=== PATIENT | female | born 1985 | race Caucasian/White ===

== ENCOUNTER 2018-09-24 04:41 | Emergency (ER) | payer OTHER ==
[2018-09-24] MEDS ORDERED: LORazepam INJ* 2 MG/ML 1 ML VIAL ONE (04:44)
[2018-09-24] MEDS ORDERED: NS 0.9% 1000 ML* 1,000 ML IV ONE ×2 (04:45→05:55)
[2018-09-24] MEDS ORDERED: LORazepam INJ* 2 MG/ML 1 ML VIAL IV PUSH ONE ×3 (04:47→06:49)
--- NOTE | 2018-09-24 04:51 | ED ---
Substance Abuse/Use - HPI Summary HPI Summary: Pt is a 36 y/o female brought in by EMS who presents to the ED c/o possible overdose. EMS found her face down on her bed, unresponsive. As per friend, she has a hx of cocaine use. Pt admits to using cocaine. EMS states that pt is very minimally responsive, and was clenched and shaking on the ride over. HR 140s and BP 100/62, as per EMS. She denies pain, fall, or seizure. Pt is not . Pt is a level 5 caveat due to her intoxication and AMS. - History Of Current Complaint Chief Complaint: EDAltMentalStatus Stated Complaint: UNRESPONSIVE Time Seen by Provider: 09/24/18 04:44 Hx Obtained From: Patient, Family/Lead Level Designer - Friend, EMS Hx From Patient Unobtainable Due To: Altered Mental Status - Intoxication Ingestion History: Type/Name Of Drug - Cocaine Character: Anxious, Other - Minimally responsive Aggravating Factor(s): Nothing Alleviating Factor(s): Nothing Associated Signs And Symptoms: Negative - Allergies/Home Medications Allergies/Adverse Reactions: Allergies Allergy/AdvReac Type Severity Reaction Status Date / Time No Known Allergies Allergy Verified 09/24/18 06:02 PMH/Surg Hx/FS Hx/Imm Hx Endocrine/Hematology History: Denies: Hx Diabetes Cardiovascular History: Denies: Hx Hypertension - Family History Known Family History: Positive: Unknown - Level 5 caveat - Social History Alcohol Use: None Hx Substance Use: Yes Substance Use Type: Reports: Cocaine Smoking Status (MU): Unknown if Ever Smoked Review of Systems Neurological: Other - AMS All Other Systems Reviewed And Are Negative: No Physical Exam - Summary Physical Exam Summary: Appearance: Well appearing, mild pain distress Skin: warm, reflects adequate perfusion, diaphoretic face, feet dirty Head/face: normal Eyes: EOMI, ESTER, pupils dilated ENT: mucous membranes moist Neck: supple, non-tender Respiratory: CTA, breath sounds present, tachypneic Cardiovascular: tachycardic, pulses symmetrical Abdomen: non-tender, soft Bowel Sounds: present Musculoskeletal: normal, strength/ROM intact Neuro: normal, sensory motor intact, A&Ox3 Triage Information Reviewed: Yes Vital Signs Reviewed: Yes Diagnostics - Laboratory Result Diagrams: 09/24/18 04:45 09/24/18 04:45 Lab Statement: Any lab studies that have been ordered have been reviewed, and results considered in the medical decision making process. - EKG 4:55 Cardiac Rate: Tachycardia - 103 bpm EKG Rhythm: Sinus Rhythm ST Segment: Normal Summary of EKG Findings: Nl axis, baseline artifact EKG 2 Cardiac Rate: NL EKG Rhythm: Sinus Rhythm - rate 81 ST Segment: Normal Ectopy: None EKG Comparison: No Significant Change Re-Evaluation - Re-Evaluation First Eval Re-Evaluation Time: 04:56 Change: Worse Comment: Pt feels dizzy. Second Eval Re-Evaluation Time: 05:55 Change: Improved Comment: Pt is now speaking. She reports snorting cocaine and nothing else. Pt' s friend is present. Course/Dx - Course Course Of Treatment: Nurse's notes reviewed. Patient presents with altered mental status and diaphoresis after stating she used more cocaine than usual. She denies alcohol use or other drugs. She is not hypertensive nor tachycardic but is feeling extremely paranoid and anxious. She has had episodes of dizziness. She also had noted SVT up to 230 rate that self terminated after approximately 30 seconds. She received 2 bags of IV fluids and 3 mg of Ativan. She still feels paranoid and anxious. Patient had a second episode where monitor was showing SVT at a rapid rate in the 200s. The patient was asymptomatic throughout this and her pulse rate taken by me was still in the 80s and unchanged from her baseline. She still remains a little diaphoretic but had no complaint of palpitation, lightheadedness etc. I was pursuing admitting her for telemetry, etc. but this appears artifactual. Repeat EKG during this time confirms normal sinus rhythm. - Diagnoses Differential Diagnosis/HQI/PQRI: Positive: Drug Abuse, Other - SVT, hallucinogenic drug, amphetamines or other synthetic medication Provider Diagnoses: Cocaine delirium, Paranoia, Lactic acidosis - Physician Notifications Discussed Care Of Patient With: Kathy Smith - discussed case. Agrees with tx plan. - Critical Care Time Critical Care Time: 30-74 min - Critical care time is exclusive of separately billable procedures. Discharge - Sign-Out/Discharge Documenting (check all that apply): Patient Departure - Discharge Plan Condition: Improved Disposition: HOME Patient Education Materials: Cocaine Abuse (ED) Referrals: [facility],. [Z.BUSINESS, APPLICATION, OTHER] - Dhiraj Norwood MD [Primary Care Provider] - Additional Instructions: Drink plenty of water. Do not use drugs. Do not drive. You have been given a list of local resources to assist you with your drug use. Return if worse, new symptoms or other concerns as discussed. Follow up with [facility]. - Billing Disposition and Condition Condition: IMPROVED Disposition: Home - Attestation Statements Document Initiated by Daniel: Yes Documenting Scribe: Malu Saavedra Provider For Whom Daniel is Documenting (Include Credential): Allen Quinn MD Scribe Attestation: Malu Martinez, scribed for Allen Quinn MD on 09/24/18 at 0651. Scribe Documentation Reviewed: Yes Provider Attestation: The documentation as recorded by the Malu joy accurately reflects the service I personally performed and the decisions made by me, Allen Quinn MD Status of Scribe Document: Viewed
[2018-09-24 05:18] LABS: ABS Basophils 0 10^3/ul (0-0.2); ABS Eosinophils 0 10^3/ul (0-0.6); ABS Lymphocytes 1.8 10^3/ul (1.0-4.8); ABS Monocytes 1.1 10^3/ul (0-0.8); ABS Neutrophils 10.4 10^3/ul (1.5-7.7); ABS Nucleated RBC 0 10^3/ul; Eosinophil % 0.1 %; Hematocrit 43 % (35-47); Hemoglobin 14.4 g/dl (12.0-16.0); Lymphocyte % 13.3 %; Mean Corpuscular HGB Conc 33 g/dl (31-36); Mean Corpuscular Hemoglobin 29 pg (27-31); Mean Corpuscular Volume 86 fL (80-97); Nucleated Red Blood Cells % 0; Platelet Count 226 10^3/ul (150-450); Red Blood Count 5.01 10^6/ul (4.00-5.40); Red Cell Distribution Width 15 % (10.5-15); White Blood Count 13.3 10^3/ul (3.5-10.8)
[2018-09-24 05:27] LABS: INR 0.98 (0.77-1.02)
[2018-09-24 05:37] LABS: Acetaminophen < 15 mcg/mL; Alcohol < 10 mg/dL (<10)
[2018-09-24 05:38] LABS: ALT 17 U/L (7-52); AST 19 U/L (13-39); Albumin 4.3 g/dL (3.2-5.2); Albumin/Globulin Ratio 1.3 (1-3); Alkaline Phosphatase 93 U/L (34-104); Anion Gap 15 mmol/L (2-11); BUN/Creatinine Ratio 11.3 (8-20); Blood Urea Nitrogen 14 mg/dL (6-24); CO2 Carbon Dioxide 19 mmol/L (22-32); Calcium 9.8 mg/dL (8.6-10.3); Chloride 103 mmol/L (101-111); Creatine Kinase 240 U/L (10-223); EGFR Non-African American 50.5 (>60); Globulin 3.4 g/dL (2-4); Glucose 125 mg/dL (70-100); Potassium 4.2 mmol/L (3.5-5.0); Sodium 137 mmol/L (135-145); Total Protein 7.7 g/dL (6.4-8.9)
[2018-09-24 05:45] LABS: HCG Pregnancy 0.66 mIU/mL
[2018-09-24] MEDS ORDERED: LORazepam TAB(*) 1 MG PO ONE (06:57)
[2018-09-24 07:24] VITALS: BP 111/74
[2018-09-24 07:38] LABS: Magnesium 1.9 mg/dL (1.9-2.7)
== END 2018-09-24 07:23 | disposition home or self-care (01) ==
LOC: EDBD → ED 04:41
DX: F14.921 Cocaine use, unspecified with intoxication delirium (principal); E87.2 Acidosis; F22 Delusional disorders
CPT/HCPCS: 36415; 80053; 80320; 80329; 82550; 83605; 83735; 84484; 84702; 85025; 85610; 93005; 96361; 96374; 96376; 99283; A9270-GY; G0480; J2060